=== PATIENT | male | born 1970 | race Caucasian/White ===

== ENCOUNTER 2016-06-29 19:32 | Emergency (ER) | payer BC ==
[~2016-06-29 19:32] MED LIST: ALPRAZOLAM; AMOXICILLIN875 MG PO; MORPHINE SULFA100 M1 PO; NORFLEX100 M1 PO; OXYCODONE HCL10 MG; OXYCODONE HCL10 MG PO
== END 2016-06-29 20:08 | disposition home or self-care (01) ==
LOC: SED 19:32
DX: S61.412A Laceration without foreign body of left hand, initial encounter (principal); Z23 Encounter for immunization; F17.200 Nicotine dependence, unspecified, uncomplicated; W26.0XXA Contact with knife, initial encounter; Y92.009 Unspecified place in unspecified non-institutional (private) residence as the place of occurrence of the external cause
CPT/HCPCS: 90471; 90715; 99283